=== PATIENT | female | born 1950 | race Caucasian/White ===

== ENCOUNTER 2020-09-03 12:25 | Observation (INO) | payer MEDICARE ==
[~2020-09-03] VITALS: Ht 160 cm; Wt 57.7 kg
--- NOTE | ~2020-09-03 | HEMODYNAMI ---
PATIENT:TOM SANDERS MEDICAL RECORD: [id number] : 50 [facility]# [id number] ADMISSION DATE: 09/04/20 Generatedon:09/04/202013:04 Patient name: TOM SANDERS Patient #: [id number] SSN: DO B: 1950 Date of study: 09/04/2020 Page: Of Hemodynamic Procedure Report Patient Data Patient Demographics Procedure consent was obtained First Name: TOM Gender: Female Last Name: MARILYN : 1950 Patient #: [id number] Age: 70 year(s) Race: Unknown Additional ID: [id number] Contact details Address: [address] State: [place] City: [place] Zip code: [address] Past Medical History Allergies: No known allergies Admission Admission Data Admission Date: 09/04/2020 Admission Time: 2:13 Admit Source: Emergency department Room #: D.E14 Lab Results Lab Result Date: 09/04/2020 Lab Result Time: 0:00 Biochemistry Name Units Result Min Max BUN mg/dl 14 --(--*-)-- 7 18 Creatinine mg/dl 0.8 --(-*--)-- 0.6 1.3 CBC Name Units Result Min Max Hematocrit % 43.5 --(*---)-- 42 54 Hemoglobin g/dl 14.1 --(*---)-- 13.5 17.5 Procedure Procedure Types Cath Procedure Diagnostic Procedure [facility] w/Coronaries Sedation Charges Procedure Description Procedure Date Procedure Date: 09/04/2020 Procedure Start Time: 12:52 Procedure End Time: 13:02 Procedure Staff Name Function Tarun Elizabeth MD Performing Physician Blu Guevara RT Monitor Simi Gao RT Scrub Jessenia Sousa RN Nurse Procedure Data Cath Procedure Fluoroscopy Diagnostic fluoroscopy Total fluoroscopy Time: 1 time: 1 min min Diagnostic fluoroscopy Total fluoroscopy dose: 150 dose: 150 mGy mGy Contrast Material Contrast Material Type Amount (ml) Isovue 300 43 Entry Location Entry Primary Successful Side Size Upsize Upsize Entry Closure Succes sful Closure Location (Fr) 1 (Fr) 2 (Fr) Remarks Device Remarks Femoral Right 5 Fr Exoseal artery Estimated blood loss: 5 ml Diagnostic catheters Device Type Used For End Catheter Placement MULTIPACK JL 4.0 5Fr Procedure catheter MULTIPACK 3DRC 5Fr Procedure catheter MULTIPACK Pigtail 5 Fr Procedure catheter Procedure Complications No complications Procedure Medications Medication Administration Route Dosage 0.9% NaCl I.V. 100 ml/hr Lidocaine 2% added to field 20 Heparin Flush Bag (1000units/500ml NS) Oxygen NC 2 l/min Versed I.V. 1 mg Fentanyl I.V. 50 mcg Hemodynamics Rest HGB: 14.1 (g/dl) Heart Rate: 83 (bpm) Pressure Samples Time Site Value (mmHg) Purpose Heart Use Rate(bpm) 12:57 LV 90/2,3 Snapshot 102 Snapshots Pre Cath Intra NCS Post Cath Vital Signs Time Heart Resp SPO2 etCO2 NIBP Rhythm Pain Sedation Rate (ipm) (%) (mmHg) (mmHg) Status Level (bpm) 12:50:23 83 17 98 19.6 120/66(94) NSR 0 (11) 10(A) , No pain 12:54:35 80 14 96 10.5 101/57(74) NSR 0 (11) 9(A) , No pain 12:58:45 88 12 99 35.4 114/57(80) NSR 0 (11) 10(A) , No pain 13:02:57 84 11 30.2 100/64(77) NSR 0 (11) 10(A) , No pain Medications Time Medication Route Dose Verified Delivered Reason Notes Effec tiveness by by 12:45:15 0.9% NaCl I.V. 100 Tarun Buffie used for ml/hr St Jj joyner MD 12:45:23 Lidocaine 2% added 20ml Tarun Mathewie used for to vial St Jj herzog MD 12:45:49 Heparin Flush Tarun Buffie Bag St Jj Aguilera RN (1000units/500ml NS) 12:46:00 Oxygen NC 2 Tarun Arevalo for low l/min St Jj Aguilera RN 02 tony PAZ 12:54:30 Versed I.V. 1 mg Tarun Ruelas for St Jj Sousa sedation MD RN 12:54:38 Fentanyl I.V. 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 11:52:27 Procedure Status Urgent Heart Cath (IP). 11:52:33 Time tracking: Regular hours (M-F 7:00 - 5:00) 11:52:37 Plan of Care:Hemodynamics will remain stable., Cardiac rhythm will remain stable., Comfort level will be maintained., Respiratory function will remain adequate., Patient/ family verbilizes understanding of procedure., Procedure tolerated without complication., Recovers from procedure without complications.. 11:52:47 H&P Date Dictated: 09/03/2020 Within 30 days and on chart.. 12:22:21 Simi Gao RT(R) sent for patient. Start room use. 12:45:15 0.9% NaCl 100 ml/hr I.V. was administered by Mickey Aguilera RN; used for procedure; Verbal order read back and verified. 12:45:23 Lidocaine 2% 20ml vial added to field was administered by Mickey Aguilera RN; used for procedure; Verbal order read back and verified. 12:45:49 Heparin Flush Bag (1000units/500ml NS) was administered by Mickey Aguilera RN; ; Verbal order read back and verified. 12:46:00 Oxygen 2 l/min NC was administered by Mickey Aguilera RN; for low 02 sats; Verbal order read back and verified. 12:49:13 Patient received from ED to CCL 1 Alert and oriented. Tansferred to table in Supine position. 12:49:14 Warm blankets applied, and josephine hugger turned on for patient comfort. 12:49:15 Correct patient and procedure confirmed by team. 12:49:15 ECG and BP/O2 sat monitors applied to patient. 12:49:15 Vital chart was started 12:49:16 Baseline sample Acquired. 12:49:19 Rhythm: sinus rhythm 12:49:20 Full Disclosure recording started 12:49:22 Pre-procedure instructions explained to patient. 12:49:22 Pre-op teaching completed and patient verbalized understanding. 12:49:24 Family in waiting room. 12:49:25 Patient NPO since Midnight. 12:49:33 Patient allergic to No known allergies 12:49:34 Is the patient allergic to Iodine/contrast media? No. 12:49:35 Is patient on blood thinner?No 12:49:37 Patient diabetic? No. 12:49:41 Previous problem with sedation/anesthesia? No ? 12:49:42 Snore? Yes 12:49:43 Sleep apnea? No 12:49:44 Deviated septum? No 12:49:45 Opens mouth fully? Yes 12:49:45 Sticks out tongue? Yes 12:49:47 Airway obstruction? No ? 12:49:48 Dentures? No ? 12:49:50 Pre procedure: right dorsailis pedis pulse 2+ Normal; easily identifiable; not easily obliterated 12:49:52 Patient pain scale 0/10 ?. 12:49:55 IV patent on arrival in left forearm with 0.9% NaCl at [facility]. 12:50:25 Lab Result : Creatinine 0.8 mg/dl 12:50:25 Lab Result : BUN 14 mg/dl 12:50:25 Lab Result : Hemoglobin 14.1 g/dl 12:50:25 Lab Result : Hematocrit 43.5 % 12:50:28 Lab results completed and on chart. 12:50:33 Right groin area was prepped with chlora-prep and draped in sterile fashion 12:50:34 Alarms reviewed by R. N. 12:50:35 Sharps counted by scrub and verified by R.N. 12:50:38 Use device set Femoral Dx 12:50:39 ACIST Syringe (61099) opened to sterile field. 12:50:39 Bag Decanter (2002S) opened to sterile field. 12:50:39 Medline Cath Pack ([id number]) opened to sterile field. 12:50:40 ACIST Hand Control (21616) opened to sterile field. 12:50:40 ACIST Manifold (17393) opened to sterile field. 12:50:41 DIAGNOSTIC Multipack 5Fr catheter set ([id number]) opened to sterile field. 12:50:41 Tegaderm 4 x 4 (1626W) opened to sterile field. 12:50:43 SHEATH 5FR York (USM060) opened to sterile field. 12:50:43 EMERALD Guide Wire (844-453) opened to sterile field. 12:50:52 Physician arrived 12:50:54 --------ALL STOP TIME OUT------ 12:50:56 Final Timeout: patient, procedure, and site verified with staff and physician. All members of the team are in agreement. 12:50:57 Right groin site verified by team. 12:51:01 Fire Safety Assessment: A--An alcohol-based skin anteseptic being used preoperatively., C--Open oxygen or nitrous oxide is being used., D--An ESU, laser, or fiber-optic light is being used. 12:51:03 Physical assessment completed. ASA score P 2 - A patient with mild systemic disease as per Tarun Elizabeth MD. 12:51:13 2) 60-89 Mildly reduced kidney function, and other findings (as for stage 1) point to kidney disease. 12:51:33 Maximum allowable contrast dose (3.7 X eGFR X 0.75)208 ml. 12:51:37 Sedation plan: IV Moderate Sedation Medication:Versed, Fentanyl 12:51:41 Procedure started. 12:52:09 Local anesthetic to right femoral artery with Lidocaine 2% by Tarun Elizabeth MD.INITIAL ACCESS ONLY 12:52:25 A 5 Fr sheath was inserted into the Right Femoral artery 12:52:34 Zero performed for pressure channel P1 12:53:36 A MULTIPACK JL 4.0 5Fr catheter was advanced over the wire and used for Procedure. 12:54:04 LCA angiography performed. 12:54:30 Versed 1 mg I.V. was administered by Jessenia Sousa RN; for sedation; Verbal order read back and verified. 12:54:38 Fentanyl 50 mcg I.V. was administered by Jessenia Sousa RN; for sedation; Verbal order read back and verified. 12:55:00 Catheter exchanged over wire. 12:55:05 A MULTIPACK 3DRC 5Fr catheter was advanced over the wire and used for Procedure. 12:56:03 RCA angiography performed. 12:56:07 Catheter removed. 12:56:11 A MULTIPACK Pigtail 5 Fr catheter was advanced over the wire and used for Procedure. 12:56:14 EXOSEAL 5Fr (EX500) opened to sterile field. 12:57:11 LV gram done using SANTACRUZ 12:57:15 Injector settings: Ml/sec: 10, Volume: 20, 12:57:16 LV hemodynamics recorded. 12:57:27 EF : 55 % 12:57:31 Catheter removed. 12:57:41 Sheath removed intact; hemostasis achieved with Exoseal to the Right Femoral artery. 12:57:43 Procedure ended.(Physican Out) 12:59:05 Fluoroscopy time 01.00 minutes. 12:59:15 Fluoroscopy dose: 150 mGy 12:59:15 Flurop Dose total: 150 13:00:09 Dose Area Product 8091 mGy/cm. 13:01:24 Contrast amount:Isovue 300 43ml. 13:01:26 Maximum allowable dose exceeded? No. 13:01:27 Sharps counted by scrub and verified by R.N. 13:01:30 Insertion/operative site no bleeding no hematoma. 13:01:33 Post-op/insertion site Right Femoral artery dressed using a 4 x 4 and Tegaderm. 13:01:37 Post right femoral artery:stable, soft, clean and dry 13:01:39 Post Procedure Pulses reassessed and unchanged 13:01:41 Post procedure: right dorsailis pedis pulse 2+ Normal; easily identifiable; not easily obliterated. 13:01:44 Post-procedure physical assessment completed. ASA score P 2 - A patient with mild systemic disease as per Tarun Elizabeth MD. 13:01:46 Post procedure rhythm: unchanged. 13:01:49 Estimated blood loss: 5 ml 13:01:50 Post procedure instruction explained to patient.Patient verbalizes understanding. 13:01:50 Patient needs reinforcement of post procedure teaching. 13:02:07 Procedure type changed to Cath procedure, Diagnostic procedure, LHC, LHC w/Coronaries, Sedation Charges 13:02:18 Procedure and supply charges have been captured, reviewed, submitted and are correct. 13:02:21 Procedure Complication : No complications 13:02:22 Vital chart was stopped 13:02:25 Operative report dictated upon procedure completion. 13:02:26 See physician's report for complete and final results. 13:02:27 Report given to Pre/Post Procedure Room. 13:02:28 Patient transfered to Pre/Post Procedure Room with Stretcher. 13:02:31 Procedure ended. 13:02:31 Full Disclosure recording stopped 13:02:35 End room use (Document Last) 13:02:58 End room use (Document Last) 13:03:09 Blu Aikenyder RT(R) was relieved by Blu Carder RT(R) as monitoring person 13:03:09 End room use (Document Last) 13:04:19 Blu Guevara RT(R) was relieved by Blu Guevara RT(R) as monitoring person Device Usage Item Name Manufacture Quantity Catalog Hospital Part Current Minimal L ot# / Number Charge Number Stock Stock Serial# Code ACIST Acist 1 65728 [id number] 248374 290316 20 Syringe Medical (46724) Systems Inc Bag Microtek 1 814355 62145 923675 5 Decanter Medical Inc. () Medline Medline 1 [id number] 237762 20835 509052 5 Cath Pack ([id number]) ACIST Hand Acist 1 42638 046937 837332 860025 5 Control Medical (44347) Systems Inc ACIST Acist 1 17556 656941 933365 073144 5 Manifold Medical (07138) Systems Inc DIAGNOSTIC Cardinal 1 XV5661 507309 45281 987942 30 Multipack Health 5Fr catheter set (NF2040) Tegaderm 4 3M 1 1626W 329222 071577 729194 5 x 4 (1626W) SHEATH 5FR Terumo 1 KLX942 520607 072622 413369 5 York (EEO655) EMERALD Cardinal 1 502-455 115288 481148 608140 5 Guide Wire Health (502-455) MULTIPACK Cardinal 1 143862 5 JL 4.0 5Fr Health catheter MULTIPACK Cardinal 1 [id number] 5 3DRC 5Fr Health catheter MULTIPACK Cardinal 1 680441 5 Pigtail 5 Health Fr catheter EXOSEAL 5Fr Cardinal 1 EX500 799260 273792 662602 10 (EX500) Health Signature Audit [place] Stage Time Signature Unsigned Intra-Procedure 09/04/2020 Blu Guevara 1:02:58 PM RT(R) Intra-Procedure 09/04/2020 Jessenia 1:04:14 PM Lars PAYNE Intra-Procedure 09/04/2020 Tarun Olea 1:04:37 PM Jj PAZ [id number] [place] [address]
[2020-09-03 13:02] LABS: BASOPHILS 0.5 % (0-2); EOSINOPHILS 1.8 % (0-7); HEMATOCRIT 45.2 % (36.0-48.0); HEMOGLOBIN 15.1 g/dL (12-16); IMMATURE GRANULOCYTES 0.2 % (0-5); LYMPHOCYTES 23.2 % (15-50); MCH 31.4 pg (26.0-34.0); MCHC 33.4 g/dL (31.0-37.0); MEAN PLATELET VOLUME 10.1 fL (7.4-10.4); MONOCYTES 8.3 % (2-11); PLATELET COUNT 250 10x3/uL (130-400); RBC 4.81 10x6/uL (4.00-5.40); RDW 13.2 % (11.5-14.5); WBC 6.6 10x3/uL (4.8-10.8)
[2020-09-03 13:19] LABS: CALC OSMOLALITY 277 mosm/kg (275-300); CALCIUM 9.2 mg/dL (8.5-10.1); CARBON DIOXIDE 24.1 mmol/L (21.0-32.0); CHLORIDE - SERUM 104 mmol/L (98-107); CREATININE - SERUM 0.9 mg/dL (0.6-1.3); GLUCOSE 108 mg/dL (74-106); POTASSIUM - SERUM 4.6 mmol/L (3.5-5.1); SODIUM 138 mmol/L (136-145); UREA NITROGEN 15 mg/dL (7-18); eGFR NON AFRICAN AMERICAN 66 mL/min (90-120)
[2020-09-03 13:31] LABS: ALBUMIN 4.1 g/dL (3.4-5.0); ALKALINE PHOSPHATASE 63 U/L (30-120); ALT (SGPT) 30 U/L (10-68); BILIRUBIN - TOTAL 0.31 mg/dL (0.2-1.3); C-REACTIVE PROTEIN 0.5 mg/dL (0.0-0.9); PRO BNP 94 pg/mL (0-125); PROTEIN - SERUM 7.7 g/dL (6.4-8.2)
[2020-09-03 13:32] LABS: TROPONIN-I < 0.017 ng/mL (0.000-0.060)
[2020-09-03 14:00] VITALS: BP 149/71
[2020-09-03 14:30] VITALS: Ht 160 cm; Wt 57.7 kg
--- NOTE | 2020-09-03 14:51 | NUR ---
SALINE LOCK STARTED COVID SWAB TO LAB HEART MONITOR=SR, PAIN FREE AT THIS TIME NO COMPLAINTS OR REQUESTS, AT BEDSIDE
[2020-09-03 15:06] VITALS: BP 153/76
--- NOTE | 2020-09-03 18:00 | NUR ---
SPOUSE BROUGHT FOOD FOR PT.
--- NOTE | 2020-09-03 19:05 | NUR ---
REPORT TO ONCOMING SHIFT
[2020-09-03 19:42] VITALS: BP 140/70
[2020-09-03 21:23] VITALS: BP 121/91
[2020-09-03 22:25] VITALS: BP 111/62
--- NOTE | 2020-09-03 22:30 | NUR ---
PT RESTING IN ROOM DENIES NEEDS, CALL LIGHT WITHIN REACH, WILL CONTINUE TO MONITOR.
[2020-09-03 23:25] VITALS: BP 113/50
[2020-09-04] VITALS (7 sets, daily range): BP systolic 102–128; BP diastolic 50–84
--- NOTE | 2020-09-04 00:03 | NUR ---
PT RESTING IN ROOM DENIES NEEDS. WILL CONTINUE TO MONITOR.
--- NOTE | 2020-09-04 02:00 | NUR ---
PT AMBULATED TO RESTROOM AND RE CONNECTED TO MONITOR.
--- NOTE | 2020-09-04 04:01 | NUR ---
PT RESTING IN ROOM DENIES NEEDS. CALL LIGHT WITHIN REACH.
[2020-09-04 08:59] LABS: BASOPHILS 0.4 % (0-2); EOSINOPHILS 2.7 % (0-7); HEMATOCRIT 43.5 % (36.0-48.0); HEMOGLOBIN 14.1 g/dL (12-16); IMMATURE GRANULOCYTES 0.2 % (0-5); LYMPHOCYTES 23.2 % (15-50); MCH 30.3 pg (26.0-34.0); MCHC 32.4 g/dL (31.0-37.0); MCV 93.5 fL (80.0-100.0); MEAN PLATELET VOLUME 9.6 fL (7.4-10.4); NEUTROPHILS 67.5 % (40-80); PLATELET COUNT 235 10x3/uL (130-400); RBC 4.65 10x6/uL (4.00-5.40); RDW 13.3 % (11.5-14.5); WBC 5.1 10x3/uL (4.8-10.8)
[2020-09-04 09:26] LABS: ALBUMIN 3.6 g/dL (3.4-5.0); ALKALINE PHOSPHATASE 55 U/L (30-120); ALT (SGPT) 32 U/L (10-68); BILIRUBIN - TOTAL 0.25 mg/dL (0.2-1.3); CALC OSMOLALITY 276 mosm/kg (275-300); CALCIUM 8.4 mg/dL (8.5-10.1); CARBON DIOXIDE 28.2 mmol/L (21.0-32.0); CHLORIDE - SERUM 107 mmol/L (98-107); CHOL - HDL RATIO 4.6 ratio (2.3-4.1); CHOLESTEROL, TOTAL 141 mg/dL (0-200); CREATININE - SERUM 0.8 mg/dL (0.6-1.3); GLUCOSE 105 mg/dL (74-106); HDL CHOLESTEROL 31 mg/dL (32-96); LDL CHOLESTEROL 81 mg/dL (0-100); LDL-HDL RATIO 2.6 ratio (1.5-3.5); POTASSIUM - SERUM 4.5 mmol/L (3.5-5.1); PROTEIN - SERUM 6.6 g/dL (6.4-8.2); SODIUM 138 mmol/L (136-145); TRIGLYCERIDE 146 mg/dL (30-200); UREA NITROGEN 14 mg/dL (7-18); eGFR NON AFRICAN AMERICAN 75 mL/min (90-120)
--- NOTE | 2020-09-04 11:20 | NUR ---
PT. IS RESTING IN BED, READING BOOK. NO DISTRESS NOTED.
--- NOTE | 2020-09-04 12:34 | NUR ---
NORMAL SALINE INFUSION STOPPED 1235.
--- NOTE | 2020-09-04 13:10 | NUR ---
PT REC'D TO ROOM 2 VIA STRETCHER FROM TECHNICAL STAFF ASSISTANT. MONITORS ESTAB. SEE LIME HIDE INSPECTOR. ALARMS ON AND C/L IN REACH.
--- NOTE | 2020-09-04 13:25 | NUR ---
R GROIN SITE SOFT, NO S/S BLEEDING OR HEMATOMA. R LEG/FOOT WARM WITH PALP PULSES AND BRISK CAP REFILL. VSS. ALARMS ON AND C/L IN REACH.
[2020-09-04] MEDS ORDERED: SYNTHROID50 MCG PO ×2 (13:43→13:45)
--- NOTE | 2020-09-04 13:55 | NUR ---
R GROIN SITE SOFT, C/D/I, NO S/S BLEEDING OR HEMATOMA. PULSES PALP, BISK CAP REFILL. VSS. PT DENIES PAIN OR NEEDS. ALARMS ON AND C/L IN REACH.
--- NOTE | 2020-09-04 14:10 | NUR ---
R GROIN SITE SOFT, NO S/S BLEEDING OR HEMATOMA. PULSES PALP. HOB ELEVATED SLOWLY. PT GIVEN SPRITE AT THIS TIME, REFUSES SANDWICH. ALARMS ON AND C/L IN REACH.
--- NOTE | 2020-09-04 14:30 | NUR ---
R GROIN SITE SOFT, NO S/S BLEEDING OR HEMATOMA. ALL DISCHARGE INSTRUCTIONS REVIEWED WITH PT AND , INCLUDING RESTRICTIONS, MEDS AND F/U APPTS. BOTH VERBALIZE UNDERSTANDING. PT TOLERATING SPRITE, DENIES PAIN OR NEEDS.
--- NOTE | 2020-09-04 14:50 | NUR ---
R GROIN SITE C/D/I, NO S/S BLEEDING OR HEMATOMA. PIV D/C'D INTACT, DSG APPLIED. PT ALLOWED UP TO GET DRESSED AND GO TO BR INDEPENDENTLY.
--- NOTE | 2020-09-04 15:00 | NUR ---
PT D/C'D VIA WC TO PRIVATE VEHICLE WITH ALL PAPERWORK AND BELONGINGS.
--- NOTE | 2020-09-05 10:43 | OP ---
PATIENT NAME: TOM SANDERS MEDICAL RECORD: [id number] :50 LOCATION:[facility] ADMISSION DATE:09/04/20 SURGEON: JULIANNE FISCHER MD DATE OF OPERATION: 09/04/2020 PROCEDURE: Left heart catheterization, selective coronary angiography, right femoral artery approach. CATHETERS: A 5-Eritrean sheath, 5/4 left and right Ca, 5/4 pig. The procedure was well tolerated. The patient returned to the garcia, sheath removed. ExoSeal device placed. FINDINGS: Left ventriculography in the 30-degree SANTACRUZ view; normal wall motion, normal systolic function. CORONARY ANATOMY: LEFT MAIN: Left main is free of disease. LAD: Free of disease in the diagonal system. CIRCUMFLEX: Free of disease in the marginal system. RIGHT CORONARY ARTERY: Dominant artery, gives rise to PDA, free of disease. IMPRESSION: Normal left ventricular systolic function, normal coronary anatomy. TRANSINT:[id number] Voice Confirmation ID: [id number] DOCUMENT ID: [id number] JULIANNE FISCHER MD at 1043 CC: [id number] DICTATION DATE: 09/04/20 1302 FIRE ALARM INSPECTOR: 09/04/20 1532 DIS IN 09/04/20 [id number] [place] [address]
== END 2020-09-04 15:00 | disposition home or self-care (01) ==
LOC: D.ER 12:25 → D.EDHOLD 09-04 02:13 → D.CLR 09-04 02:13 → OBSVTIME 09-04 02:13 → D.EDHOLD 09-04 02:15 → OBSVTIME 09-04 02:15 → D.EDHOLD 09-04 02:17 → D.CLR 09-04 13:18
PROVIDERS: Family Medicine; ADMIT Family Medicine; ATTEND Family Medicine
DX: I20.0 Unstable angina (principal); E03.9 Hypothyroidism, unspecified; R53.83 Other fatigue